=== PATIENT | female | born 1950 | race Hispanic/Latino ===

== ENCOUNTER 2017-05-26 09:44 | Outpatient (CLI) | payer OTHER ==
--- NOTE | 2017-05-26 14:44 | Mammography Report ---
BILATERAL DIGITAL SCREENING MAMMOGRAM with CAD and 3-D TOMOSYNTHESIS: 05/26/17 10:00:00 CLINICAL: Routine screening. COMPARISON:06/04/16 FINDINGS: The breasts are heterogeneously dense, which may obscure small masses. No mass, architectural distortion or suspicious calcifications. IMPRESSION: No mammographic evidence of malignancy. BI-RADS CATEGORY: 1 - - Negative RECOMMENDATION: Routine mammographic screening in one year. COMMENT: Patient follow-up letters are generated by our [employer] application.
--- NOTE | 2017-05-26 14:44 | Mammography Report ---
BILATERAL DIGITAL SCREENING MAMMOGRAM with CAD and 3-D TOMOSYNTHESIS: 05/26/17 10:00:00 CLINICAL: Routine screening. COMPARISON:06/04/16 FINDINGS: The breasts are heterogeneously dense, which may obscure small masses. No mass, architectural distortion or suspicious calcifications. IMPRESSION: No mammographic evidence of malignancy. BI-RADS CATEGORY: 1 - - Negative RECOMMENDATION: Routine mammographic screening in one year. COMMENT: Patient follow-up letters are generated by our [employer] application.
== END 2017-05-26 09:45 | disposition home or self-care (01) ==
LOC: MAMMO 09:44
PROVIDERS: ATTEND Obstetrics & Gynecology Gynecology
DX: Z12.31 Encounter for screening mammogram for malignant neoplasm of breast (principal)
CPT/HCPCS: 77063; G0202; 77067

== ENCOUNTER 2019-07-16 10:58 | Outpatient (CLI) | payer MEDICARE ==
--- NOTE | 2019-07-16 14:27 | Mammography Report ---
DIGITAL SCREENING MAMMOGRAM WITH CAD, 07/16/2019 INDICATION: Routine screening mammography. TECHNIQUE: Digital bilateral 2D mammography was obtained in the craniocaudal and mediolateral obliq ue projections. This examination was interpreted with the benefit of Computer-Aided Detection analysi s. COMPARISON: 05/23/2018 FINDINGS: Breast Density: The breasts are heterogeneously dense, which may obscure small masses. There is no evidence of dominant mass, suspicious calcifications or architectural distortion in eithe r breast. IMPRESSION: No mammographic evidence of malignancy. Follow up recommendation: Routine yearly BI-RADS Category 1: Negative. A "normal" or negative report should not discourage follow up or biopsy of a clinically significant f inding. A written summary of these findings will be mailed to the patient. The patient will be entered into a mammography reporting system which will generate a reminder letter for the patient's next appointmen t at the appropriate interval. The [employer] recommends yearly mammograms starting at age 40 and continuing as l meera as a woman is in good health. Breast MRI is recommended for women with an approximate 20-25% or greater lifetime risk of breast cancer, including women with a strong family history of breast or ova eduar cancer or who have been treated for Hodgkin's disease. Signer Name: Juve Elise MD Signed: 07/16/2019 2:23 PM Workstation Name: [id number]
== END 2019-07-16 10:59 | disposition home or self-care (01) ==
LOC: MAMMO 10:58
PROVIDERS: ATTEND Obstetrics & Gynecology Gynecology
DX: Z12.31 Encounter for screening mammogram for malignant neoplasm of breast (principal)
CPT/HCPCS: 77067

== ENCOUNTER 2021-01-07 10:12 | Outpatient (CLI) | payer MEDICARE ==
--- NOTE | 2021-01-07 15:07 | Mammography Report ---
DIGITAL SCREENING MAMMOGRAM WITH CAD, 01/07/2021 INDICATION: Routine screening mammography. TECHNIQUE: Digital bilateral 2D mammography was obtained in the craniocaudal and mediolateral obliq ue projections. This examination was interpreted with the benefit of Computer-Aided Detection analysi s. COMPARISON: 07/16/2019. FINDINGS: Breast Density: The breasts are heterogeneously dense, which may obscure small masses. There is no evidence of dominant mass, suspicious calcifications or architectural distortion in eithe r breast. IMPRESSION: Follow up recommendation: Routine yearly BI-RADS Category 1: Negative. A "normal" or negative report should not discourage follow up or biopsy of a clinically significant f inding. A written summary of these findings will be mailed to the patient. The patient will be entered into a mammography reporting system which will generate a reminder letter for the patient's next appointmen t at the appropriate interval. The [employer] recommends yearly mammograms starting at age 40 and continuing as l meera as a woman is in good health. Breast MRI is recommended for women with an approximate 20-25% or greater lifetime risk of breast cancer, including women with a strong family history of breast or ova edaur cancer or who have been treated for Hodgkin's disease. Signer Name: Chris Rodríguez MD Signed: 01/07/2021 3:02 PM Workstation Name: [id number]
== END 2021-01-07 10:13 | disposition home or self-care (01) ==
LOC: MAMMO 10:12
PROVIDERS: ATTEND Obstetrics & Gynecology Gynecology
DX: Z12.31 Encounter for screening mammogram for malignant neoplasm of breast (principal); N64.89 Other specified disorders of breast
CPT/HCPCS: 77067

== ENCOUNTER 2021-12-10 14:31 | Outpatient (CLI) | payer MEDICARE ==
--- NOTE | 2021-12-10 16:33 | Mammography Report ---
DEXA BONE DENSITY SCAN INDICATION / CLINICAL INFORMATION: Z13.820. 71 years Female COMPARISON: 04/29/2014 LUMBAR SPINE, L1-L4: - Bone mineral density (BMD) = 0.962 g/cm2. - T-score = -0.8 - Change (%) since most recent prior (if available): 2.9% increase LEFT HIP, NECK : - Bone mineral density (BMD) = 0.567 g/cm2. - T-score = -2.5 - Change (%) since most recent prior (if available): 2.3% decrease IMPRESSION: 1. WHO Classification: Osteoporosis. Fracture Risk: High. 2. 10-Year Fracture Risk (FRAX) = Major Osteoporotic Not reported.% / Hip: Not reported.% FRAX generally not reported for patients with normal or osteoporotic BMD, in [id number] zack ents younger than age 50, or in patients undergoing pharmacotherapy BMD Reporting Guidelines (ISCD, 2015) BMD Reporting in Postmenopausal Women and in Men Age 50 and Older - T-scores are preferred. - The WHO densitometric classification is applicable. BMD Reporting in Females Prior to Menopause and in Males Younger Than Age 50 - Z-scores, not T-scores, are preferred. This is particularly important in children. - A Z-score of -2.0 or lower is defined as below the expected range for age, and a Z-score above -2.0 is within the expected range for age. - Osteoporosis cannot be diagnosed in men under age 50 on the basis of BMD alone. - The WHO diagnostic criteria may be applied to women in the menopausal transition. http://www.iscd.org/official-positions/6181-pftq-dgduwesj-positions-adult/ Signer Name: Alonso Mullen MD Signed: 12/10/2021 4:29 PM Workstation Name: [id number]
== END 2021-12-10 14:32 | disposition home or self-care (01) ==
LOC: MAMMO 14:31
PROVIDERS: ATTEND Family Medicine
DX: M81.0 Age-related osteoporosis without current pathological fracture (principal)
CPT/HCPCS: 77080

== ENCOUNTER 2022-02-19 11:08 | Outpatient (CLI) | payer MEDICARE ==
--- NOTE | 2022-02-22 12:04 | Mammography Report ---
DIGITAL SCREENING MAMMOGRAM WITH CAD, 02/19/2022 CLINICAL INFORMATION / INDICATION: Routine screening mammography. SCREENING MAMMOGRAM Z12.31 TECHNIQUE: Digital bilateral 2D mammography was obtained in the craniocaudal and mediolateral obliqu e projections. This examination was interpreted with the benefit of Computer-Aided Detection analysis . COMPARISON: 01/07/2021. FINDINGS: Breast Density: The breasts are heterogeneously dense, which may obscure small masses. No dominant mass, suspicious calcifications, or architectural distortion in either breast. IMPRESSION: No mammographic evidence of malignancy. Follow up recommendation: Routine yearly screening mammogram. BI-RADS Category 1: NEGATIVE A "normal" or negative report should not discourage follow up or biopsy of a clinically significant f inding. A written summary of these findings will be mailed to the patient. The patient will be entered into a mammography reporting system which will generate a reminder letter for the patient's next appointmen t at the appropriate interval. The [employer] recommends yearly mammograms starting at age 40 and continuing as l meera as a woman is in good health. Breast MRI is recommended for women with an approximate 20-25% or greater lifetime risk of breast cancer, including women with a strong family history of breast or ova eduar cancer or who have been treated for Hodgkin's disease. Signer Name: Chris Rodríguez MD Signed: 02/22/2022 12:00 PM Workstation Name: [id number]
== END 2022-02-19 11:09 | disposition home or self-care (01) ==
LOC: MAMMO 11:08
PROVIDERS: ATTEND Family Medicine
DX: Z12.31 Encounter for screening mammogram for malignant neoplasm of breast (principal)
CPT/HCPCS: 77067